=== PATIENT | male | born 1990 | race Caucasian/White ===

== ENCOUNTER 2023-01-24 08:02 | Emergency (ER) | payer OTHER, SELFPAY ==
--- NOTE | 2023-01-24 08:11 | ED.GENADULT ---
HPI - General Adult General Chief complaint: Eye Problems Stated complaint: left eye Source: patient and RN notes reviewed History of Present Illness HPI narrative: 32-year-old male presents to urgent care complaints swelling and irritation to his left upper eyelid. Patient states this started on Tuesday and noticed it to be on the lateral end of the upper eyelid. Patient states he applied a warm compress twice last night with no relief and states he woke up this morning with his whole upper lid swollen. Patient denies any visual disturbance, drainage extraocular movement pain, fevers, or chills. Pt does not wear contacts. Some parts of this dictation were generated by voice recognition software and may contain typographical and/or grammatical inaccuracies. Related Data Allergies Allergy/AdvReac Type Severity Reaction Status Date / Time No Known Allergies Allergy Unverified 01/24/23 08:20 Review of Systems Review of Systems: Pertinent positives and pertinent negatives per HPI. PMFSH Comments At the time of my signature, I reviewed and agree with the nursing past medical, surgical, social, and family history. There is no relevant family history pertinent to the patient complaint. Exam Narrative: GENERAL: This is a well-nourished, well-developed patient, in no apparent distress. HEAD: normocephalic, atraumatic. EYES: PERRL. Sclera clear/white. Vision is grossly intact. Left upper eyelid noted to be mildly edematous and erythemic. EARS: External ears normal, auditory canals clear and without drainage. Hearing grossly intact. NOSE: External nose normal with no obvious nasal discharge, nares without redness, no rhinorrhea. THROAT: Mucous membranes moist, posterior pharynx clear. NECK: Neck supple, non-tender without lymphadenopathy, masses or thyromegaly. CARDIOVASCULAR: Regular rate RESPIRATORY: No respiratory distress SKIN: warm, intact with no suspicious lesions or rash, good texture and turgor. NEURO: awake, alert, and oriented to person, place and time. There were no obvious focal neurologic abnormalities. Course Course Level of Care: Express Care Visit Vital Signs Vital signs: Vital Signs Temperature 98.2 F 01/24/23 08:14 Pulse Rate 67 01/24/23 08:14 Respiratory Rate 20 01/24/23 08:14 Blood Pressure 132/75 01/24/23 08:14 Pulse Oximetry 99 01/24/23 08:14 Oxygen Delivery Room Air 01/24/23 08:14 Temperature 98.2 F 01/24/23 08:14 Pulse Rate 67 01/24/23 08:14 Respiratory Rate 20 01/24/23 08:14 Blood Pressure 132/75 01/24/23 08:14 Pulse Oximetry 99 01/24/23 08:14 Oxygen Delivery Room Air 01/24/23 08:14 Reviewed Medical Decision Making MDM Narrative Medical decision making narrative: Use the antibiotic ointment as directed. Continue applying a warm compress to eye 3x/day for 15 min each time. Follow up with Ophthalmology if symptoms persist over the next week and do not improve. Differential Diagnosis Differential Diagnosis: Blepharitis, Stye, periorbital cellulitis Vital Signs Vital Signs: Vital Signs Temperature 98.2 F 01/24/23 08:14 Pulse Rate 67 01/24/23 08:14 Respiratory Rate 20 01/24/23 08:14 Blood Pressure 132/75 01/24/23 08:14 Pulse Oximetry 99 01/24/23 08:14 Oxygen Delivery Room Air 01/24/23 08:14 Temperature 98.2 F 01/24/23 08:14 Pulse Rate 67 01/24/23 08:14 Respiratory Rate 20 01/24/23 08:14 Blood Pressure 132/75 01/24/23 08:14 Pulse Oximetry 99 01/24/23 08:14 Oxygen Delivery Room Air 01/24/23 08:14 Critical Care Time Critical Care Time Critical Care Time: No Discharge Plan Discharge Clinical Impression: Blepharitis Qualifiers: Blepharitis type: unspecified type Laterality: left Eyelid: upper Qualified Code(s): H01.004 - Unspecified blepharitis left upper eyelid Patient Disposition: Home, Self-Care Condition: Stable Instructions: Antibiotic Form, Blepharitis (ED) Ad
[2023-01-24 08:14] VITALS: BP 132/75; PULSE 67; RESP 20; TEMP 36.8; O2SAT 99
== END 2023-01-24 08:38 | disposition home or self-care (01) ==
PROVIDERS: Emergency Provider Nurse Practitioner Family; PCP Internal Medicine
DX: H01.004 Unspecified blepharitis left upper eyelid (principal)
CPT/HCPCS: 99213; G0463